=== PATIENT | female | born 2000 ===

== ENCOUNTER 2020-05-01 16:21 | Outpatient (REF) | payer MEDICAID, SELFPAY | END 2020-05-01 16:22 | disposition home or self-care (01) | LOC: HO.LAB 16:21 | PROVIDERS: PCP Pediatrics; Visit Provider Internal Medicine | DX: Z20.828 Contact with and (suspected) exposure to other viral communicable diseases (principal) | CPT/HCPCS: C9803; U0003 ==

== ENCOUNTER 2021-02-18 18:14 | Outpatient (REF) | payer OTHER, SELFPAY ==
--- NOTE | ~2021-02-18 | MR_ITS ---
EXAMINATION: MRI OF THE BRAIN WITHOUT CONTRAST CLINICAL INFORMATION: Headache. COMPARISON: There are no prior studies available for comparison. TECHNIQUE: MRI of the brain was obtained using routine sequences without contrast. FINDINGS: No diffusion abnormalities are identified to suggest an acute or subacute infarct. No mass effect or midline shift is seen. The ventricles are normal in size. Brain parenchymal signal appears normal. No extra-axial fluid collections are seen. The brainstem and cerebellum are normal. No pathologic magnetic susceptibility artifact is identified on the gradient refocused acquisition. There are small lymph nodes in the right parotid gland. The craniovertebral junction, marrow signal, and midline structures are normal. The major intracranial flow-voids at the level of the [place] are preserved. The dural venous sinus flow-voids are maintained. The bilateral maxillary sinuses are atelectatic and opacified. The mastoid air cells are well-aerated. MR/MR head/brain wo con IMPRESSION: 1. There are no acute bleeds or infarcts. No masses are demonstrated. 2. The bilateral maxillary sinuses are atelectatic and opacified.
== END 2021-02-18 18:15 | disposition home or self-care (01) ==
LOC: HO.MRI 18:14
PROVIDERS: PCP Internal Medicine; Visit Provider Internal Medicine
DX: R51.9 Headache, unspecified (principal)
CPT/HCPCS: 70551

== ENCOUNTER 2022-02-19 13:30 | Emergency (ER) | payer OTHER, SELFPAY ==
[2022-02-19 13:34] VITALS: BP 131/111; PULSE 90; RESP 20; TEMP 36.7; O2SAT 96; BMI 33.1
== END 2022-02-19 18:24 | disposition left against medical advice (07) ==
PROVIDERS: Emergency Provider Emergency Medicine; PCP Internal Medicine
DX: R51.9 Headache, unspecified (principal)
CPT/HCPCS: 99281

== ENCOUNTER 2022-02-20 12:37 | Emergency (ER) | payer OTHER, SELFPAY ==
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
[2022-02-20 12:43] VITALS: BP 123/72; PULSE 94; RESP 16; TEMP 36.4; O2SAT 99; BMI 33.3
[2022-02-20 15:37] VITALS: BP 123/61; PULSE 85; RESP 16; TEMP 36.9; O2SAT 100
[2022-02-20 16:46] LABS: MANUAL DIFF FLAG NO
[2022-02-20 16:48] LABS: Basophils Percent Auto 0.1 % (0-2); Eosinophils Absolute Auto 0.4 X10*3/uL (0.0-0.4); Eosinophils Percent Auto 3.6 % (0-4); Hematocrit 37.3 % (37.0-47.0); Hemoglobin 12.9 g/dl (12.0-16.0); Imm Gran Abs Auto 0.06 X10*3/uL (0.00-0.03); Imm Gran Pct Auto 0.6 % (0.0-0.4); Lymphocytes Absolute Auto 3.2 X10*3/uL (1.2-4.9); Mean Corpuscular HGB Conc 34.6 g/dl (31.0-35.0); Mean Corpuscular Hemoglobin 29.1 pg (27.0-33.0); Mean Platelet Volume 9.5 fL (9.4-12.3); Monocytes Absolute Auto 0.6 X10*3/uL (0.1-1.2); Monocytes Percent Auto 5.7 % (2-11); Neutrophils Absolute Auto 6.4 x10*3/uL (2.0-8.3); Platelet Count 326 X10*3/uL (160-400); Red Blood Count 4.44 X10*6/uL (4.20-5.50); Red Cell Distribution Width 12.2 % (11.0-16.0); White Blood Count 10.7 X10*3/uL (4.8-10.8)
[2022-02-20 16:50] LABS: Appearance Urine Clear; Color Urine Yellow; Glucose Urine UA Negative (Negative); Leukocyte Esterase Urine Negative (Negative); Nitrite Urine Negative (Negative); Urine Blood Negative (Negative); Urine Ketones Negative (Negative); Urine Protein Negative (Neg-Trace)
[2022-02-20 16:52] LABS: Urine Pregnancy NEGATIVE (NEGATIVE)
[2022-02-20 16:53] LABS: UPreg QC Valid YES
[2022-02-20 16:55] LABS: Prothrombin Time 11.6 SEC (10.0-13.1)
[2022-02-20 17:08] LABS: Alanine Aminotransferase 15 U/L (0-31); Albumin Level 4.6 g/dL (3.5-5.0); Alkaline Phosphatase 69 U/L (39-117); Anion Gap 15 (12-20); Aspartate Amino Transferase 17 U/L (5-31); Bilirubin Total 0.4 mg/dL (0.0-1.0); Blood Urea Nitrogen 8 mg/dL (9-16); Calcium 9.6 mg/dL (8.4-10.2); Carbon Dioxide 25 mmol/L (22-29); Chloride 105 mmol/L (96-108); Creatinine Clr Calc Pharmacy 141.4; Estimated Glomerular Filt Rate > 60; Glucose Random 81 mg/dL (60-115); Lipase 9 U/L (8-78); Magnesium 2.1 mg/dL (1.6-2.6); Sodium 141 mmol/L (135-145); Total Protein 7.9 g/dL (6.5-8.0)
[2022-02-20 17:13] LABS: HCG Quantitative < 2 mIU/mL
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
[2022-02-20 17:53] VITALS: BP 135/71; PULSE 82; RESP 18; TEMP 37.1; O2SAT 98
[2022-02-20] MEDS: Cyclobenzaprine HCl 10 MG TABLET PO (17:59)
[2022-02-20] MEDS: oxyCODONE HCl Immed Release 5 MG TABLET PO (17:59)
[2022-02-20] MEDS: iohexoL 350 MG/ML 100 ML INFUS..BTL IV (19:12)
--- NOTE | 2022-02-20 21:01 | PC.NURSE ---
Pt. resting in bed awaiting d/c. Pt. states pain is much better since she was given medication. Pt. anxious to get home and rest.
== END 2022-02-20 21:03 | disposition home or self-care (01) ==
PROVIDERS: Physician Assistant Medical; Emergency Provider Student in an Organized Health Care Education/Training Program; PCP Internal Medicine
DX: S06.0X0A Concussion without loss of consciousness, initial encounter (principal); S13.4XXA Sprain of ligaments of cervical spine, initial encounter; S29.011A Strain of muscle and tendon of front wall of thorax, initial encounter; S39.011A Strain of muscle, fascia and tendon of abdomen, initial encounter; S00.83XA Contusion of other part of head, initial encounter; V43.52XA Car driver injured in collision with other type car in traffic accident, initial encounter; Y93.89 Activity, other specified; Y92.414 Local residential or business street as the place of occurrence of the external cause; Y99.9 Unspecified external cause status
CPT/HCPCS: 36415; 70450; 71260; 72125; 74177; 80053; 81003; 81025; 83690; 83735; 84702; 85025; 85610; 99284; Q9967

== ENCOUNTER → 2023-03-01 15:29 | Outpatient (BNVA) | payer SELFPAY | PROVIDERS: PCP Physician Assistant; Visit Provider Nurse Practitioner Family ==

== ENCOUNTER 2023-04-14 10:45 | Outpatient (REF) | payer OTHER, SELFPAY ==
[2023-04-15 03:10] LABS: CT PCR NOT DETECTED (Not Detect.); NG PCR NOT DETECTED (Not Detect.)
[2023-04-15 10:21] LABS: BV Int Neg Control Negative (Negative); BV Int Pos Control Positive (Positive)
== END 2023-04-14 10:46 | disposition home or self-care (01) ==
LOC: HO.LNP 10:45
PROVIDERS: PCP Physician Assistant; Visit Provider Advanced Practice Midwife
DX: Z01.419 Encounter for gynecological examination (general) (routine) without abnormal findings (principal); Z20.2 Contact with and (suspected) exposure to infections with a predominantly sexual mode of transmission; E66.9 Obesity, unspecified
CPT/HCPCS: 0353U; 87480; 87510; 87660; 88142

== ENCOUNTER 2023-04-14 10:45 | Outpatient (AMB) | payer OTHER, SELFPAY ==
[2023-04-14 10:47] VITALS: BP 126/80; BMI 38.4
--- NOTE | 2023-04-14 10:47 | MHC.OFFVIS ---
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 She saw her primary care provider this summer and her primary care provider referred her for this and also gave her some medicine for migraine headaches and they do seem to be a little bit better but she has an appointment coming up with Neurology and she is going to talk about things a little bit more. She is sexually active but it is with a girl and she does not need control. She was on control when she was 16 or 17 she had the Nexplanon and she thinks it caused her to gain a whole lot of weight. She says said she is working on losing the weight by going to [employer] and working out in the gym and she is also trying to eat very healthy with protein and vegetables and avoid carbs and she is feeling better and her skin is better and she is doing well and she is a little discouraged because she was hoping to be further along in her weight loss journey but she is feeling better by changing her habits. She gets regular periods every month and they last for 7 days. 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 [facility] Medical History (Updated 04/14/23 @ 11:32 by Melanie Carlson CNM) Chronic daily headache Obesity (BMI 35.0-39.9 without comorbidity) Surgical History No pertinent past surgical history Family History Mother No problems noted. Father High triglycerides Social History (Updated 04/14/23 @ 10:50 by WILIAM Steinberg Housing: Apartment Alcohol intake: current Alcohol intake frequency: holidays/special occasions only Alcohol type: beer Patient Tobacco Use Status: Never used Tobacco e-Cigarette/Vaping Use: Never Used Second Hand Smoke Exposure: No Substance Use Type: Marijuana service: No Current occupational status: unemployed Cognitive needs: No Hearing needs: No Vision needs: No Female Reproductive History Menstrual Age of Menarche: 10 Duration of menses: 6-7 days Date of last menstrual period: 03/28/23 control method: none Total pregnancies: 1 Ab spontaneous: 1 Physical Exam Vital Signs: Last Vital Signs BP 126/80 04/14/23 10:47 BMI result Body Mass Index 38.4 Const General: healthy appearing, comfortable, no acute distress, well developed and alert Nutritional Appearance: average body habitus Orientation/consciousness: patient oriented x3 Limitations: no limitations HEENT Head: Yes normocephalic Neck Neck: Yes normal visual inspection Thyroid: Thyroid normal Chest Chest palpation & inspection: normal inspection of the chest Breast/axilla inspection: normal inspection of the breasts and normal inspection of the axillae Breast/axilla palpation: normal palpation of the breasts and normal palpation of the axillae Resp Effort & Inspection: normal respiratory effort GI Inspection: Yes normal to inspection, No Abdominal wall edema and No distended Palpation (GI): Soft to palpation and nontender Other: External exam within normal limits vagina is pink and moist cervix nulliparous pink moist clear discharge consistent with having just ovulated most likely. Uterus is small made to anteverted nontender mobile and adnexa nontender not enlarged and very good tone with Kegel. General: Yes bladder normal to palpation External Female Exam: normal external appearance and normal appearance of the urethra Speculum Exam - Vagina: normal appearance of the vagina, normal palpation and normal vaginal discharge Speculum Exam - Cervix: normal appearance of the cervix, normal palpation and nontender Bimanual exam- vagina & uterus: normal bimanual exam, normal palpation, uterine size normal, bladder normal to palpation, consistency normal, normal palpation, uterine mobility normal, uterine shape normal, No Cervical tenderness present, non-tender and no cervical motion tenderness Bimanual Exam- Adnexa, other: normal adnexae, no masses, normal and No adnexal tenderness Neuro General: patient oriented x3 Assessment & Plan Assessment & Plan (1) Screening for cervical cancer: Code(s): Z12.4 - Encounter for screening for malignant neoplasm of cervix (2) Obesity (BMI 35.0-39.9 without comorbidity): Comment: Working on it with exercise and healthy eating. Code(s): E66.9 - Obesity, unspecified (3) Well woman exam with routine gynecological exam: Code(s): Z01.419 - Encounter for gynecological examination (general) (routine) without abnormal findings Plan -----Discussed in this visit the following: healthy balanced diet, regular and consistent exercise, getting recommended health screens, doing the best she can for her particular health concerns, kegel exercises, pap smear screening and followup recommendations, mammography screening and SBE, normal changes in cycles in her life stage--- . Disc.ussed that Nexplanon is notorious for contributing to weight gain discussed her excellent efforts at losing her weight. Recommend remembering how she feels consciously as she is getting healthier and eating healthy so if she gets discouraged she can remember that she felt better when she ate better. We will see her in a year if she ever changes activity and needs control she should let us know.. She does not think she needs any bloodwork for hiv/hep/syphylis STI testing other than what was done with the exam (we did testing for gonorrhea chlamydia trichomoniasis Gardnerella and yeast along with her 1st Pap smear safer sex discussed as well) Coding Level of Care Code New Pt Prev Care 18-39yr([id number] Diagnoses Screening for cervical cancer Z12.4 Obesity (BMI 35.0-39.9 without comorbidity) E66.9 Well woman exam with routine gynecological exam Z01.419
== END 2023-04-14 11:25 | disposition home or self-care (01) ==
LOC: HO.HWS 10:45
PROVIDERS: PCP Physician Assistant; Visit Provider Advanced Practice Midwife
DX: Z01.419 Encounter for gynecological examination (general) (routine) without abnormal findings (principal); E66.9 Obesity, unspecified; Z68.38 Body mass index [BMI] 38.0-38.9, adult
CPT/HCPCS: 99385

== ENCOUNTER 2023-06-14 13:36 | Outpatient (AMB) | payer OTHER, SELFPAY ==
--- NOTE | 2023-06-14 13:42 | MHC.OFFVIS ---
Intake Vital Signs 06/14/23 13:45 Height 5 ft 5 in Weight 227 lb 2 oz BMI 37.8 BP 140/64 H Blood Pressure Location Lt brachial Position Sitting Pulse 97 Pulse Source Pulse Oximeter Pulse Oximetry (%) 98 Oxygen Delivery Method Room Air Intake Visit Reasons: [id number] Intake Note: Patients presents for headache evaluation. x3 to x4 a week Complaine of headaches.annamaria Allergies No Known Allergies Allergy (Verified 06/14/23 13:49) Medication List - Last Reconciled 06/14/23 by Aleta Hernández, VALIDATION ARCHITECT sumatriptan succinate 25 mg PO Q2-4H PRN 30 days topiramate 25 mg PO BEDTIME 90 days HPI HPI Comments History of Present Illness Details Left-handed female presents for new pt evaluation of headache disorder. Pt reports she has had bothersome worsening headaches since October 2022. She denies any preceding infections or injuries. Prior to this, she denies any bothersome headaches- maybe just a headache triggered by not using her glasses. Headache questionnaire: Typical headache characteristics: Prodrome symptoms? None Aura? Denies visual aura Pain intensity? Moderate Location, quality, characteristics? Stabbing, burning left frontal, temporal, retro-orbital headache Associated symptoms? Photophobia, some phonophobia, left eye droop, rhinorrhea, left-sided Theresa did knee a, neck stiffness, left lower jaw numbness, activity intolerance. Without red eye. Postdrome? Unsure Triggers? Stress. Standing up or bending over can exacerbate headache. Turning her head to the left can trigger a mild left temporal sharp sore pain. Menstrual triggers? Denies Time of day? Often shortly after waking up Duration? 4-5 hours, but can last all day. Frequency? 2-3 days per week How does headache impact your life? Does interfere with her daily activities. Works at [employer], has to miss work at times due to the headache. Current acute medication use/interventions: Excedrin Extra Strength b.i.d. 2-3 times per week Previous acute medication use: None Current preventative medication use: None Previous preventative medication use: None Non-pharmacological interventions: Ice helps some Patient also endorses: Mild anxiety Sleeps okay but still feels tired, snoring, excessive daytime sleepiness, ESS 10. Patient denies: constipation Family planning: No current plans to start a family- no current risk. Family history of migraine or other headache disorder: Her mother has mild migraine. [facility] Medical History (Updated 06/14/23 @ 14:51 by CRISTY Mac) Chronic daily headache Obesity (BMI 35.0-39.9 without comorbidity) Surgical History No pertinent past surgical history Family History Mother No problems noted. Father High triglycerides Social History Housing: Apartment Alcohol intake: current Alcohol intake frequency: holidays/special occasions only Alcohol type: beer Patient Tobacco Use Status: Never used Tobacco e-Cigarette/Vaping Use: Never Used Second Hand Smoke Exposure: No Substance Use Type: Marijuana service: No Current occupational status: unemployed Cognitive needs: No Hearing needs: No Vision needs: No Female Reproductive History Menstrual Age of Menarche: 10 Review of Systems Const Details: See scanned ROS form Physical Exam Vital Signs: Last Vital Signs Pulse 97 06/14/23 13:45 BP 140/64 H 06/14/23 13:45 Pulse Ox 98 06/14/23 13:45 Oxygen Delivery Method Room Air 06/14/23 13:45 BMI result Body Mass Index 37.8 Const Orientation/consciousness: patient oriented x3 HEENT Other: No palpable scalp tenderness. Head: Yes normocephalic Resp Effort & Inspection: normal respiratory effort and able to speak in complete sentences Neuro General: patient oriented x3 Cranial nerves: Yes CN's II-XII intact bilaterally Cognition (Neuro): normal cognition Gait exam (Neuro): Normal gait present Motor exam (neuro): 5/5 motor strength present throughout Deep tendon reflexes (DTR's): Right triceps reflex intensity grade: 2+, Left triceps reflex intensity grade: 2+, Rt Biceps (C5, C6): 2+, Left biceps reflex intensity grade: 2+, Right brachioradialis reflex intensity grade: 2+, Left brachioradialis reflex intensity grade: 2+, Right patellar reflex intensity grade: 2+ and Left patellar reflex intensity grade: 2+ Coordination: [id number] test normal, tandem gait normal and Romberg test negative Pupils: Normal pupillary reactivity/response: bilateral Psych Appearance: grossly normal Mental Status: mental status grossly normal Speech and movement: Normal speech and movement present Affect: normal affect Attitude: cooperative Thought process: Normal thought process present Assessment & Plan Assessment & Plan (1) Left-sided headache: Code(s): R51.9 - Headache, unspecified (2) Autonomic attacks: Code(s): G40.109 - Localization-related (focal) (partial) symptomatic epilepsy and epileptic syndromes with simple partial seizures, not intractable, without status epilepticus (3) Ptosis, left eyelid: Code(s): H02.402 - Unspecified ptosis of left eyelid (4) Snoring: Code(s): R06.83 - Snoring (5) Excessive daytime sleepiness: Code(s): G47.19 - Other hypersomnia (6) Sleep difficulties: Code(s): G47.9 - Sleep disorder, unspecified Plan Pt advised to undergo brain MRI w/wo to assess for secondary etiologies of headache a/w autonomic, unilateral ptosis s/s. Pt advised to undergo HST to assess for sleep apnea Check labs for common etiologies For overall headache management: Discussed importance of good self-care, including but not limited to maintaining a healthy diet, adequate fluid intake, adequate sleep, and engaging in regular physical activity. For headache triggers: Track headaches, especially after any treatment regimen changes. Migraine [employer] is one of many headache tracking apps. For acute headache treatment: Discussed importance of taking acute medications at the first sign of headache, however stressed importance of avoiding acute medication overuse (especially with combined headache medications). Trial Sumatriptan 100mg tab, 1/2 - 1 tab (50-100mg) at onset of headache, may repeat in 2 hours. Max of 2 tabs (200mg) per 24 hours. May adjunct with OTC Tylenol 650mg q 4 hours, Ibuprofen 600mg q 6 hours, or Naproxen 440mg q 12 hrs prn. Reviewed potential adverse effects of triptans, including but not limited to nausea, fatigue, chest tightness/tingling (usually passes within a few minutes), medication overuse headaches. Hold Excedrin. Previous acute migraine medication trials: none Acute migraine medication contraindications: none at this time For headache prevention medication: Discussed that preventative medications should be taken routinely as prescribed for best effect, it may take several weeks for full effect to take effect. Start Magnesium 400mg qhs Start Topiramate 25-50mg qhs. Reviewed potential adverse effects of Topiramate, including but not limited to fatigue, cognitive changes, paresthesias (tingling), vision changes, kidney stones. Previous migraine prevention medication trials: none Migraine prevention medication contraindications: none at this time Pt to follow-up in 2-3 months or sooner prn. Orders: Orders Complete Blood Count Auto Diff 06/21/23 G47.19 - Other hypersomnia, H02.402 - Unspecified ptosis of left eyelid, G40.109 - Localization-related (focal) (partial) symptomatic epilepsy and epileptic syndromes with simple partial seizures, not intractable, without status epilepticus, R51.9 - Headache, unspecified, E66.9 - Obesity, unspecified Comprehensive Met. Panel 06/21/23 G47.19 - Other hypersomnia, H02.402 - Unspecified ptosis of left eyelid, G40.109 - Localization-related (focal) (partial) symptomatic epilepsy and epileptic syndromes with simple partial seizures, not intractable, without status epilepticus, R51.9 - Headache, unspecified, E66.9 - Obesity, unspecified Hemoglobin A1c 06/21/23 G47.19 - Other hypersomnia, H02.402 - Unspecified ptosis of left eyelid, G40.109 - Localization-related (focal) (partial) symptomatic epilepsy and epileptic syndromes with simple partial seizures, not intractable, without status epilepticus, R51.9 - Headache, unspecified, E66.9 - Obesity, unspecified TSH reflex Free T4 06/21/23 G47.19 - Other hypersomnia, H02.402 - Unspecified ptosis of left eyelid, G40.109 - Localization-related (focal) (partial) symptomatic epilepsy and epileptic syndromes with simple partial seizures, not intractable, without status epilepticus, R51.9 - Headache, unspecified, E66.9 - Obesity, unspecified Vitamin B12 and Folate 06/21/23 G47.19 - Other hypersomnia, H02.402 - Unspecified ptosis of left eyelid, G40.109 - Localization-related (focal) (partial) symptomatic epilepsy and epileptic syndromes with simple partial seizures, not intractable, without status epilepticus, R51.9 - Headache, unspecified, E66.9 - Obesity, unspecified Vitamin D 25-OH (D2 and D3) 06/21/23 G47.19 - Other hypersomnia, H02.402 - Unspecified ptosis of left eyelid, G40.109 - Localization-related (focal) (partial) symptomatic epilepsy and epileptic syndromes with simple partial seizures, not intractable, without status epilepticus, R51.9 - Headache, unspecified, E66.9 - Obesity, unspecified MR head/brain wo/w con 06/14/23 R51.9 - Headache, unspecified, G40.109 - Localization-related (focal) (partial) symptomatic epilepsy and epileptic syndromes with simple partial seizures, not intractable, without status epilepticus, H02.402 - Unspecified ptosis of left eyelid RT home sleep study 06/14/23 R06.83 - Snoring, G47.19 - Other hypersomnia, G47.9 - Sleep disorder, unspecified BRY Reflex Titer and Pattern 06/21/23 G47.19 - Other hypersomnia, H02.402 - Unspecified ptosis of left eyelid, G40.109 - Localization-related (focal) (partial) symptomatic epilepsy and epileptic syndromes with simple partial seizures, not intractable, without status epilepticus, R51.9 - Headache, unspecified, E66.9 - Obesity, unspecified Rheumatoid Factor 06/21/23 G47.19 - Other hypersomnia, H02.402 - Unspecified ptosis of left eyelid, G40.109 - Localization-related (focal) (partial) symptomatic epilepsy and epileptic syndromes with simple partial seizures, not intractable, without status epilepticus, R51.9 - Headache, unspecified, E66.9 - Obesity, unspecified Medications: New magnesium oxide may hold for loose stools 400 mg PO BEDTIME 30 tabs 6RF 30 days sumatriptan succinate 50 - 100 mg orally at onset of headache, may repeat in 2 hrs PRN; max 2 tabs per day or 4 tabs/week (may take with Ibuprofen) 12 tabs 6RF migraine headache 30 days Changed From topiramate 25 mg PO BEDTIME 90 days 90 tabs 1RF R51.9 - Headache, unspecified To topiramate 25 - 50 mg (1 - 2 x 25 mg) PO BEDTIME 60 tabs 2RF 30 days R51.9 - Headache, unspecified Discontinued sumatriptan succinate do not exceed 8 doses per 24 hrs Discontinued Reason: Doctor's Order 25 mg PO Q2-4H 30 days PRN 9 tabs 0RF migraine headache Coding Level of Care Code New Pt Level 4 (52150) Diagnoses Left-sided headache R51.9 Autonomic attacks G40.109 Ptosis, left eyelid H02.402 Snoring R06.83 Excessive daytime sleepiness G47.19 Sleep difficulties G47.9
[2023-06-14 13:45] VITALS: BP 140/64; PULSE 97; O2SAT 98; BMI 37.8
== END 2023-06-14 14:59 | disposition home or self-care (01) ==
PROVIDERS: PCP Physician Assistant; Visit Provider Nurse Practitioner Family
DX: R51.9 Headache, unspecified (principal); G40.109 Localization-related (focal) (partial) symptomatic epilepsy and epileptic syndromes with simple partial seizures, not intractable, without status epilepticus; H02.402 Unspecified ptosis of left eyelid; R06.83 Snoring; G47.19 Other hypersomnia; G47.9 Sleep disorder, unspecified
CPT/HCPCS: 99204

== ENCOUNTER → 2023-06-14 13:36 | Outpatient (BNVA) | payer OTHER, SELFPAY | PROVIDERS: PCP Physician Assistant; Visit Provider Nurse Practitioner Family | DX: R51.9 Headache, unspecified (principal); G40.109 Localization-related (focal) (partial) symptomatic epilepsy and epileptic syndromes with simple partial seizures, not intractable, without status epilepticus; H02.402 Unspecified ptosis of left eyelid; R06.83 Snoring; G47.19 Other hypersomnia; G47.9 Sleep disorder, unspecified | CPT/HCPCS: 99202 ==

== ENCOUNTER 2023-06-21 15:19 | Outpatient (REF) | payer OTHER, SELFPAY ==
[2023-06-21 15:35] LABS: MANUAL DIFF FLAG NO
[2023-06-21 16:47] LABS: Basophils Percent Auto 0.1 % (0-2); Eosinophils Absolute Auto 0.7 X10*3/uL (0.0-0.4); Hematocrit 35.9 % (37.0-47.0); Imm Gran Abs Auto 0.05 X10*3/uL (0.00-0.03); Imm Gran Pct Auto 0.5 % (0.0-0.4); Lymphocytes Absolute Auto 3.4 X10*3/uL (1.2-4.9); Lymphocytes Percent Auto 35.8 % (20-40); Mean Corpuscular HGB Conc 33.4 g/dl (31.0-35.0); Mean Corpuscular Hemoglobin 27.8 pg (27.0-33.0); Mean Corpuscular Volume 83.1 fL (80.0-98.0); Monocytes Absolute Auto 0.6 X10*3/uL (0.1-1.2); Monocytes Percent Auto 6.2 % (2-11); Neutrophils Absolute Auto 4.7 x10*3/uL (2.0-8.3); Neutrophils Percent Auto 50.4 % (45-73); Platelet Count 298 X10*3/uL (160-400); Red Blood Count 4.32 X10*6/uL (4.20-5.50); Red Cell Distribution Width 12.4 % (11.0-16.0); White Blood Count 9.4 X10*3/uL (4.8-10.8)
[2023-06-21 16:54] LABS: Estimated Average Glucose 108 mg/dL; Hemoglobin A1c % 5.4 % (<6.0)
[2023-06-21 18:12] LABS: Alanine Aminotransferase 18 U/L (0-31); Albumin Level 4.4 g/dL (3.5-5.0); Alkaline Phosphatase 75 U/L (39-117); Anion Gap 13 (12-20); Aspartate Amino Transferase 17 U/L (5-31); Bilirubin Total 0.2 mg/dL (0.0-1.0); Blood Urea Nitrogen 10 mg/dL (9-16); Calcium 9.4 mg/dL (8.4-10.2); Carbon Dioxide 24 mmol/L (22-29); Chloride 107 mmol/L (96-108); Cholesterol 170 mg/dL (<200); Estimated Glomerular Filt Rate > 60; Glucose Fasting 77 mg/dL (60-99); Glucose Random 78 mg/dL (60-115); HDL Cholesterol 43 mg/dL (>40); LDL Cholesterol Calculated 106 mg/dL (<100); Sodium 140 mmol/L (135-145); Triglycerides 106 mg/dL (<150)
[2023-06-21 18:13] LABS: Rheumatoid Factor < 13.0 IU/mL (<15.0)
[2023-06-21 18:18] LABS: TSH reflex Free T4 0.48 uIU/mL (0.32-4.0)
[2023-06-21 18:36] LABS: Folate 7.4 ng/mL (> or = 4.0); Vitamin B12 276 pg/mL (200-900)
[2023-06-25 15:38] LABS: Vitamin D 25-OH, D2 <4 ng/mL; Vitamin D 25-OH, D3 7 ng/mL; Vitamin D 25-OH, Total 7 ng/mL (30-100)
[2023-06-29 14:59] LABS: Anti Nuclear Antibody Screen POSITIVE (NEGATIVE); Anti Nuclear Antibody Titer 1:40 titer
== END 2023-06-21 15:20 | disposition home or self-care (01) ==
LOC: HO.LAB 15:19
PROVIDERS: Absent Provider Internal Medicine; PCP Internal Medicine; Visit Provider Nurse Practitioner Family
DX: G47.19 Other hypersomnia (principal); H02.402 Unspecified ptosis of left eyelid; G40.109 Localization-related (focal) (partial) symptomatic epilepsy and epileptic syndromes with simple partial seizures, not intractable, without status epilepticus; R51.9 Headache, unspecified; E66.9 Obesity, unspecified
CPT/HCPCS: 36415; 80053; 80061; 82306; 82607; 82746; 83036; 84443; 85025; 86038; 86039; 86431

== ENCOUNTER 2023-07-29 16:32 | Outpatient (REF) | payer OTHER, SELFPAY ==
--- NOTE | ~2023-07-29 | MR_ITS ---
EXAMINATION: MR BRAIN WITHOUT AND WITH CONTRAST CLINICAL INFORMATION: 22-year-old with headache, unspecified. COMPARISON: 02/18/2021 MRI. TECHNIQUE: Multiplanar, multisequence MRI of the brain was obtained before and after the intravenous administration of 10 mL Gadavist. FINDINGS: BRAIN VOLUME: Within normal limits within the limitations of qualitative assessment. STRUCTURAL: No malformations. BRAIN AND MENINGES: DWI sequence demonstrates no restricted diffusion to suggest acute or subacute cerebral ischemia. The brain is normal in morphology and signal intensity. Gradient refocused imaging demonstrates no abnormal susceptibility-weighted signal loss to suggest hemorrhage, hemosiderin staining or abnormal mineralization. No extra-axial fluid collections, intracranial mass lesions, space-occupying process, mass effect or pathologic intracranial enhancement are identified. VENTRICLES AND SUBARACHNOID SPACES: The ventricular system and subarachnoid spaces are within normal range; there is no hydrocephalus. ORBITAL STRUCTURES: The visualized orbital structures are grossly unremarkable within the limitations of the study. VASCULAR: Signal voids are noted in the visualized major intracranial vessels. Osseous Structures, Sinuses/Mastoids, Extracranial Soft Tissues: Osseous marrow signal intensity appears grossly unremarkable. There is bilateral ethmoid sinus and a maxillary sinus mucosal thickening, stable in the right maxillary sinus, improved in the left maxillary sinus, and slightly progressed in the ethmoid complex since previous exam. MR/MR head/brain wo/w con IMPRESSION: 1. Normal MRI of the brain without and with contrast. 2. Paranasal sinus mucosal inflammatory changes as discussed above.
[2023-07-29] MEDS: gadobutroL 10 ML VIAL IVPUSH (17:53)
== END 2023-07-29 16:33 | disposition home or self-care (01) ==
LOC: HO.MRI 16:32
PROVIDERS: PCP Internal Medicine; Visit Provider Nurse Practitioner Family
DX: R51.9 Headache, unspecified (principal); G40.109 Localization-related (focal) (partial) symptomatic epilepsy and epileptic syndromes with simple partial seizures, not intractable, without status epilepticus; H02.402 Unspecified ptosis of left eyelid
CPT/HCPCS: 70553; A9585

== ENCOUNTER → 2023-08-09 07:34 | Outpatient (BNVA) | payer OTHER, SELFPAY | PROVIDERS: PCP Internal Medicine; Visit Provider Nurse Practitioner Family ==

== ENCOUNTER 2023-08-09 07:53 | Outpatient (AMB) | payer OTHER, SELFPAY ==
--- NOTE | 2023-08-09 07:35 | A.OFFVIS_ITS ---
Intake Intake Visit Reasons: 6W follow [id number] Intake Note: this is a 6 month follow up Allergies No Known Allergies Allergy (Verified 08/09/23 07:35) Medication List - Last Reconciled 08/09/23 by CRISTY Mac magnesium oxide 400 mg PO BEDTIME 30 days naproxen 500 mg PO BID PRN 30 days riboflavin (vitamin B2) 400 mg PO DAILY 30 days rizatriptan 5 - 10 mg (0.5 - 1 x 10 mg) PO Q2H PRN 21 days sumatriptan succinate 50 - 100 mg orally at onset of headache, may repeat in 2 hrs PRN; max 2 tabs per day or 4 tabs/week (may take with Ibuprofen) 30 days topiramate 50 mg (2 x 25 mg) PO BID 30 days HPI HPI Comments History of Present Illness Details 22-yr-old female presents for f/u televi gretta visit via [employer]. Pt denies any significant interval medical changes. Brain MRI w/wo- normal. HST scheduled for 08/11. Since the last visit, pt had called as she was having her typical left sided headache, ut it was lasting for > 3 days. Sumatriptan- helped some, but was taking a few hours, and causes a strange burning enck sensation. She was advised to start the topiramate and try Rizatriptan/Naproxen prn. She has since started Topiramate 25mg qhs. Has not yet tried Rizatriptan/Naproxen. She has had 4-5 migraine days in the last 2 weeks. Baseline migraine w/ aura headache characteristics: Moderate, Stabbing, burning left frontal, temporal, retro-orbital headache a/w Photophobia, some phonophobia, left eye droop, rhinorrhea, left-sided allodynia, neck stiffness, left lower jaw numbness, activity intolerance. Without red eye. 06/21/23 15:33 WBC 9.4 RBC 4.32 Hgb 12.0 Hct 35.9 L MCV 83.1 MCH 27.8 MCHC 33.4 RDW 12.4 Plt Count 298 MPV 10.0 Sodium 140 Potassium 4.0 Chloride 107 Carbon Dioxide 24 Anion Gap 13 BUN 10 Creatinine 0.72 Estimated GFR > 60 Random Glucose 78 Fasting Glucose 77 Estimat Average Gl ucose 108 Hemoglobin A1c % 5.4 Calcium 9.4 Total Bilirubin 0.2 AST 17 ALT 18 Alkaline Phosphata se 75 Total Protein 8.0 Albumin 4.4 Triglycerides 106 Cholesterol 170 LDL Cholesterol, C alc 106 H HDL Cholesterol 43 25-OH Vitamin D To zeesahn 7 L 25-Hydroxy Vitamin D2 <4 25-Hydroxy Vitamin D3 7 BRY Screen POSITIVE A BRY Titer 1:40 H BRY Pattern A [facility] Medical History (Updated 08/09/23 @ 08:20 by CRISTY Mac) Chronic daily headache Obesity (BMI 35.0-39.9 without comorbidity) Surgical History No pertinent past surgical history Family History Mother No problems noted. Father High triglycerides Social History Housing: Apartment Alcohol intake: current Alcohol intake frequency: holidays/special occasions only Alcohol type: beer Patient Tobacco Use Status: Never used Tobacco e-Cigarette/Vaping Use: Never Used Second Hand Smoke Exposure: No Substance Use Type: Marijuana service: No Current occupational status: unemployed Cognitive needs: No Hearing needs: No Vision needs: No Female Reproductive History Menstrual Age of Menarche: 10 Physical Exam Const General: cooperative and no acute distress Orientation/consciousness: patient oriented x3 Resp Effort & Inspection: normal respiratory effort and able to speak in complete sentences Neuro General: patient oriented x3 Cognition (Neuro): normal cognition Psych Appearance: grossly normal Mental Status: mental status grossly normal Speech and movement: Normal speech and movement present Affect: normal affect Attitude: cooperative Assessment & Plan Assessment & Plan (1) Migraine with aura: Code(s): G43.109 - Migraine with aura, not intractable, without status migrainosus (2) Sleep difficulties: Code(s): G47.9 - Sleep disorder, unspecified (3) Excessive daytime sleepiness: Code(s): G47.19 - Other hypersomnia (4) Snoring: Code(s): R06.83 - Snoring (5) Vitamin D deficiency: Code(s): E55.9 - Vitamin D deficiency, unspecified (6) Positive BRY (antinuclear antibody): Code(s): R76.8 - Other specified abnormal immunological findings in serum Plan Reviewed brain MRI w/wo- normal HST as scheduled- to assess for sleep apnea Reviewed labs- results notable for: Low Vit D 7- will supplement. Mildly positive BRY 1:40- will recheck in f/u. ? For overall headache management: Continue to optimize good self-care, including but not limited to maintaining a healthy diet, adequate fluid intake, adequate sleep, and engaging in regular physical activity. For headache triggers: Track headaches, especially after any treatment regimen changes. ? For acute headache treatment: Discussed importance of taking acute medications at the first sign of headache, however stressed importance of avoiding acute medication overuse (especially with combined headache medications). Hold Sumatriptan 100mg tab- not fully effective and not tolerated. Trial Rizatriptan 10mg prn. Trial Naproxen 500mg bid prn. Previous acute migraine medication trials: Sumatriptan 100mg tab- not fully effective and not tolerated. Acute migraine medication contraindications: none at this time ? For headache prevention medication: Start Riboflavin 400mg qam. Continue Magnesium 400mg qhs Increase Topiramate from 25mg qhs to 50mg qhs. Previous migraine prevention medication trials: none Migraine prevention medication contraindications: none at this time ? ? Pt to follow-up in 3 months or sooner prn. Medications: New cholecalciferol (vitamin D3) 25 mcg PO DAILY 30 days 30 caps 6RF riboflavin (vitamin B2) 400 mg PO DAILY 30 days 30 tabs 6RF Telehealth Telehealth Location of provider rendering services: practice address Location of patient: address on file Patient Identification confirmed using: Name, : Yes Telehealth method: video Patient verbally consented to treatment: Yes Patient verbally consented to billing insurance company: Yes Patient informed of any privacy concerns related to visit: Yes Minutes spent on Phone/Video with Pt.: 11 Coding Level of Care Code Tele Est Pt Level 4 (87966) Diagnoses Migraine with aura G43.109 Sleep difficulties G47.9 Excessive daytime sleepiness G47.19 Snoring R06.83 Vitamin D deficiency E55.9 Positive BRY (antinuclear antibody) R76.8
== END 2023-08-09 08:37 | disposition home or self-care (01) ==
PROVIDERS: PCP Internal Medicine; Visit Provider Nurse Practitioner Family
DX: G43.109 Migraine with aura, not intractable, without status migrainosus (principal); G47.9 Sleep disorder, unspecified; G47.19 Other hypersomnia; R06.83 Snoring; E55.9 Vitamin D deficiency, unspecified; R76.8 Other specified abnormal immunological findings in serum
CPT/HCPCS: 99214

== ENCOUNTER → 2023-09-21 13:59 | Outpatient (REF) | payer OTHER, SELFPAY | LOC: HO.SL 13:59 | PROVIDERS: PCP Internal Medicine; Visit Provider Nurse Practitioner Family | DX: Z13.89 Encounter for screening for other disorder (principal) ==

== ENCOUNTER 2023-11-10 14:26 | Outpatient (AMB) | payer OTHER, SELFPAY ==
[2023-11-10 14:30] VITALS: BP 122/72; BMI 37.1
--- NOTE | 2023-11-10 14:30 | A.OFFPC_ITS ---
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 Required: No Accompanied by: Self / Same As Patient Allergies No Known Allergies Allergy (Verified 11/10/23 14:40) Medication List - Last Reconciled 11/10/23 by Gaby Galarza MD cholecalciferol (vitamin D3) 25 mcg PO DAILY 30 days magnesium oxide 400 mg PO BEDTIME 30 days naproxen 500 mg PO BID PRN 30 days riboflavin (vitamin B2) 400 mg PO DAILY 30 days rizatriptan 5 - 10 mg (0.5 - 1 x 10 mg) PO Q2H PRN 21 days sumatriptan succinate 50 - 100 mg orally at onset of headache, may repeat in 2 hrs PRN; max 2 tabs per day or 4 tabs/week (may take with Ibuprofen) 30 days topiramate 50 mg (2 x 25 mg) PO BID 30 days Tobacco use date assessed: 11/10/23 Dental Screening Dental Screen Date: 11/10/23 Did you have a dental visit in the last 12 months?: No Did you have a dental problem in the last 6 months where you did not have access to dental care?: No Was dental information given to patient?: Patient has dentist HPI HPI Comments History of Present Illness Details This is a 23-year-old female that comes for her physical exam. Last Pap smear was 2022 and was normal. No chest pain or shortness on breath. No change in bowel or bladder habits. She has obese with a BMI of 37.1 and was advised to diet and exercise to reach BMI goal less than 30. [facility] Medical History (Updated 11/10/23 @ 15:04 by Gaby Galarza MD) Autonomic attacks Chronic daily headache Obesity (BMI 35.0-39.9 without comorbidity) Surgical History No pertinent past surgical history Family History Mother No problems noted. Father High triglycerides Social History Housing: Apartment Alcohol intake: current Alcohol intake frequency: holidays/special occasions only Alcohol type: beer Patient Tobacco Use Status: Never used Tobacco e-Cigarette/Vaping Use: Never Used Second Hand Smoke Exposure: No Substance Use Type: Marijuana service: No Current occupational status: employed Current occupational exposures/hazards: No Cognitive needs: No Hearing needs: No Vision needs: No Female Reproductive History Menstrual Age of Menarche: 10 Questionnaire PHQ-9 Over the last 2 weeks, how often have you been bothered by any of the following problems? 1. Little interest or pleasure in doing things: not at all 2. Feeling down, depressed, or hopeless: not at all 3. Trouble falling or staying asleep, or sleeping too much: not at all 4. Feeling tired or having little energy: not at all 5. Poor appetite or overeating: not at all 6. Feeling bad about yourself - or that you are a failure or have let yourself or your family down: not at all 7. Trouble concentrating on things, such as reading the newspaper or watching television: not at all 8. Moving or speaking so slowly that other people could have noticed. Or the opposite - being so fidgety or restless that you have been moving around a lot more than usual: not at all 9. Thoughts that you would be better off or of hurting yourself in some way: not at all Total score: 0 Source: Developed by Drs. Petey Yoo, Donna Avila, Luis Carlos Harmon and colleagues, with an educational zhang from [employer]. Thrive Questionnaire Date Thrive assessed: 11/10/23 I am a: Patient What is your living situation today?: I have a steady place to live Within the past 12 months, did the food you bought not last and you didn't have the money to get more?: Never true Within the past 12 months, did you worry whether your food would run out before you got money to buy more?: Never true Do you have trouble paying for medicines?: No Do you have trouble getting transportation to medical appointments?: No Do you have trouble paying your heating and electricity bill?: No Do you have trouble taking care of your child, family member or friend?: No Do you have trouble with day-to-day activities such as bathing, preparing meals, shopping, managing finances, etc.?: No Are you currently unemployed and looking for a job?: No Are you interested in more education?: No Please select the resources that you would like help with: None Currently or been in a relationship where the following occur: no concerns reported THRIVE Score: 0 AUDIT C Alcohol Use Questionnaire (AUDIT-C) 1. How often do you have a drink containing alcohol?: Monthly or less 2. How many drinks containing alcohol do you have on a typical day when you are drinking?: 1 or 2 3. How often do you have six or more drinks on one occasion?: Never Total Score: 1 SHERYL-7 AMB Questionnaire SHERYL-7 Date SHERYL - 7 assessed: 11/10/23 Feeling nervous, anxious, or on edge: 0 = Not at all Not being able to stop or control worryin = Not at all Worrying too much about different things: 0 = Not at all Trouble relaxin = Not at all Being so restless that it is hard to sit still: 0 = Not at all Becoming easily annoyed or irritable: 0 = Not at all Feeling afraid as if something awful might happen: 0 = Not at all Total SHERYL-7 score (0-4 normal; 5-9 mild; 10-14 moderate; 15-21 severe): 0 Source: Developed by Drs. Petey Yoo, Donna Avila, Luis Carlos Harmon and colleagues, with an educational zhang from [employer]. Review of Systems Const All systems reviewed & are unremarkable except as noted in HPI and below Card Denies chest pain at rest, Denies chest pain with activity, Denies edema, Denies irregular heart rhythm, Denies claudication, Denies dyspnea, Denies dyspnea on exertion, Denies orthopnea, Denies paroxysmal nocturnal dyspnea and Denies slow heart rate Resp Denies cough, Denies dyspnea and Denies dyspnea on exertion Neuro Denies confusion Psych Denies confusion Physical exam (Primary Care) Vital Signs: Last Vital Signs BP 122/72 11/10/23 14:30 BMI result Body Mass Index 37.1 BMI Assessment/Plan discussion: High BMI High, discussed plan: lifestyle, weight reduction, dietary and physical activity Tobacco/Smoking Status: Tobacco use Status Tobacco use date assessed 06/12/24 06/12/24 14:34 Patient Tobacco Use Status Never used Tobacco 11/10/23 14:34 e-Cigarette/Vaping Use Never Used 11/10/23 14:34 PHQ-9: PHQ-9 Score PHQ-9: Total score 0 11/10/23 14:48 Thrive Assessment: Date of Thrive Assessment Date Thrive assessed 11/10/23 11/10/23 14:34 Currently or been in a relationship where the following occur: no concerns reported Const General: No confusion Orientation/consciousness: patient oriented x3 and No confusion HENMT Head: Yes normal to inspection, Yes normocephalic and Yes atraumatic Ears: external ears normal Eyes General: appearance normal, both eyes and all related structures Eyelids: Yes eyelids normal Conjunctivae: conjunctivae normal Neck Neck: Yes normal visual inspection and Yes supple Resp Effort & Inspection: normal respiratory effort Auscultation: clear to auscultation bilaterally Cardio Jugular venous distension: no JVD Rate: regular rate Rhythm: regular rhythm Heart sounds: S1 normal heart sound present and S2 normal heart sound present GI Inspection: Yes normal to inspection Palpation (GI): Soft to palpation and nontender Auscultation: normal bowel sounds Skin General skin exam: no rashes or lesions noted Neuro General: patient oriented x3, no focal motor deficits and No confusion Extrem General: Yes full ROM Psych Appearance: grossly normal Immunizations Boostrix Tdap 2.5 Lf unit-8 mcg-5 Lf/0.5 mL intramuscular syringe Performing Provider: Gaby Galarza MD Performing Location: [facility] Administered by: HUNG Colunga on 11/10/23 14:52 Dose Route Admin Location Dispensed Lot Number Expiration Date [facility] Fibre Technologist 0.5 mL IM Left Deltoid 0.5 mL [id number] 01/05/26 [id number] GCW VIS Given Date VIS Provided VIS Publication Date 11/10/23 Single Vaccine 21 Eligibility Eligibility Date Funding Source Not [facility] Eligible 11/10/23 Private Assessment and Plan Assessment & Plan (1) Encounter for physical examination: Code(s): Z00.00 - Encounter for general adult medical examination without abnormal findings Plan: Repeat in a year. Orders: Orders TDaP Immunization Today Z23 - Encounter for immunization Referrals Dermatology Referral L70.0 - Acne vulgaris Medications: New doxycycline hyclate 100 mg PO DAILY 90 caps 1RF 90 days L70.0 - Acne vulgaris Coding Level of Care Code Est Pt Prev Care 18-39y(42986) Diagnoses Encounter for physical examination Z00.00 Time Spent (min) 31
== END 2023-11-10 15:31 | disposition home or self-care (01) ==
PROVIDERS: PCP Physician Assistant; Visit Provider Internal Medicine
DX: Z00.00 Encounter for general adult medical examination without abnormal findings (principal); Z23 Encounter for immunization; E66.9 Obesity, unspecified; Z68.37 Body mass index [BMI] 37.0-37.9, adult
CPT/HCPCS: 90471; 90715; 99395

== ENCOUNTER 2024-04-04 14:11 | Outpatient (AMB) | payer OTHER, SELFPAY ==
[2024-04-04 14:14] VITALS: BP 122/78; PULSE 100; O2SAT 98; BMI 37.1
--- NOTE | 2024-04-04 14:14 | MHC.PC.OV ---
Vital Signs 04/04/24 14:14 Height 5 ft 5 in Weight 223 lb BMI 37.1 BP 122/78 Blood Pressure Location Lt brachial Position Sitting Pulse 100 Pulse Source Pulse Oximeter Pulse Oximetry (%) 98 Oxygen Delivery Method Room Air Intake Visit Reasons: little ball in jaw Intake Note: pt c/o of right side jaw pain starting today Type Photography Supervisor Required: No Allergies No Known Allergies Allergy (Verified 04/04/24 14:14) Medication List - Last Reconciled 04/04/24 by Charito Hess PA-C cholecalciferol (vitamin D3) 25 mcg PO DAILY 30 days doxycycline hyclate 100 mg PO DAILY 90 days magnesium oxide 400 mg PO BEDTIME 30 days naproxen 500 mg PO BID PRN 30 days riboflavin (vitamin B2) 400 mg PO DAILY 30 days rizatriptan 5 - 10 mg (0.5 - 1 x 10 mg) PO Q2H PRN 21 days sumatriptan succinate 50 - 100 mg orally at onset of headache, may repeat in 2 hrs PRN; max 2 tabs per day or 4 tabs/week (may take with Ibuprofen) 30 days topiramate 50 mg (2 x 25 mg) PO BID 30 days Tobacco use date assessed: 11/10/23 Dental Screening Dental Screen Date: 11/10/23 HPI little ball in jaw HPI Details 23-year-old female with past medical history obesity, headaches, hypersomnolence, migraines coming in for acute problem. Bump on the side of the jaw that started today. She is scheduled to have a root canal on the right upper molar but has not scheduled this appointment yet. She was given a referral for land surveyor assistant by her dentist and has not called to make an appointment yet. The bump is on a lower aspect of the right side of the jaw and is swollen and slightly red. [facility] Medical History (Updated 04/04/24 @ 14:45 by Charito Hess PA-C) Autonomic attacks Chronic daily headache Obesity (BMI 35.0-39.9 without comorbidity) Surgical History No pertinent past surgical history Family History Mother No problems noted. Father High triglycerides Social History Housing: Apartment Alcohol intake: current Alcohol intake frequency: holidays/special occasions only Alcohol type: beer Patient Tobacco Use Status: Never used Tobacco e-Cigarette/Vaping Use: Never Used Second Hand Smoke Exposure: No Substance Use Type: Marijuana service: No Current occupational status: employed Current occupational exposures/hazards: No Cognitive needs: No Hearing needs: No Vision needs: No Female Reproductive History Menstrual Age of Menarche: 10 Questionnaire Thrive Questionnaire Date Thrive assessed: 11/10/23 AUDIT C Alcohol Use Questionnaire (AUDIT-C) 1. How often do you have a drink containing alcohol?: Monthly or less 2. How many drinks containing alcohol do you have on a typical day when you are drinking?: 1 or 2 3. How often do you have six or more drinks on one occasion?: Never Total Score: 1 SHERYL-7 AMB Questionnaire SHERYL-7 Date SHERYL - 7 assessed: 11/10/23 Source: Developed by Drs. Petey Yoo, Donna Avila, Luis Carlos Harmon and colleagues, with an educational zhang from [employer]. Review of Systems Const Denies body aches, Denies chills and Denies fever(s) Eyes Reports no additional complaints ENT Denies dysphagia and Denies odynophagia Card Denies chest pain and Denies dyspnea Resp Denies dyspnea GI Reports no additional complaints, Denies dysphagia and Denies odynophagia Reports no additional complaints Musc Details: Right jaw/neck pain and swelling Physical exam (Primary Care) Vital Signs: Last Vital Signs Pulse 100 04/04/24 14:14 BP 122/78 04/04/24 14:14 Pulse Ox 98 04/04/24 14:14 Oxygen Delivery Method Room Air 04/04/24 14:14 BMI result Body Mass Index 37.1 Tobacco/Smoking Status: Tobacco use Status Tobacco use date assessed 11/10/23 04/04/24 14:15 Patient Tobacco Use Status Never used Tobacco 04/04/24 14:15 e-Cigarette/Vaping Use Never Used 04/04/24 14:15 Thrive Assessment: Date of Thrive Assessment Date Thrive assessed 11/10/23 04/04/24 14:15 Const General: cooperative, healthy appearing, comfortable and no acute distress Orientation/consciousness: patient oriented x3 HENMT Other: Posterior oropharynx normal without any swelling or redness. No evidence infection of the gums Head: Yes normocephalic Ears: hearing grossly normal bilaterally General nose exam: Normal external nose present Eyes General: appearance normal, both eyes and all related structures Conjunctivae: conjunctivae normal Neck Neck: Yes full ROM and Yes no lymphadenopathy Neck images: 1. Tender swelling slightly erythematous Resp Effort & Inspection: normal respiratory effort Auscultation: clear to auscultation bilaterally, no crackles, no rales, no rhonchi and no wheezes Cardio Rate: regular rate Rhythm: regular rhythm Skin General skin exam: no rashes or lesions noted Neuro General: patient oriented x3 Gait exam (Neuro): Normal gait present Extrem General: Yes normal to inspection, Yes full ROM and No edema Psych Affect: normal affect Attitude: cooperative Insight: Good insight present (Psych) Judgement: Good judgement present (Psych) Coding Level of Care Code Est Pt Level 4 (30419) Diagnoses Neck mass R22.1 Assessment & Plan Assessment & Plan (1) Neck mass: Code(s): R22.1 - Localized swelling, mass and lump, neck Category: Medical Plan: Will cover for possible infection with Augmentin and advised patient to follow up with dentist for root canal. No need for imaging at this time and advised patient to monitor her symptoms and if swelling does not resolve with antibiotic to reach out to the office. Discussed red flag symptoms and when to present for the ER. Plan This note was constructed using voice recognition software. While every effort has been made to ensure accuracy and client services assistant, still areas may have been included sometimes these areas may affect the content or meeting of the given symptoms. Total time spent caring for the patient today was 30 minutes. This includes time spent before the visit reviewing the chart, time spent during the visit, and time spent after the visit and documentation. Medications: New amoxicillin-pot clavulanate 875-125 mg 1 tab PO BID 7 days 14 tabs 0RF
== END 2024-04-04 15:02 | disposition home or self-care (01) ==
LOC: HO.HMCH 14:12
PROVIDERS: PCP Internal Medicine; Visit Provider Internal Medicine
DX: R22.1 Localized swelling, mass and lump, neck (principal)

== ENCOUNTER → 2024-04-04 14:11 | Outpatient (BNVA) | payer OTHER, SELFPAY | PROVIDERS: PCP Internal Medicine; Visit Provider Internal Medicine | DX: R22.1 Localized swelling, mass and lump, neck (principal) | CPT/HCPCS: 99212 ==